=== PATIENT | male | born 1990 | race Caucasian/White ===

== ENCOUNTER 2018-01-05 18:09 | Emergency (ER) | payer OTHER ==
[2018-01-05 18:15] VITALS: BP 135/84
--- NOTE | 2018-01-05 18:46 | EDPHY ---
H & P Stated Complaint: Lower back pain x 2 days worse today, no trauma Time Seen by Provider: 01/05/18 18:31 HPI/ROS: CHIEF COMPLAINT: Acute low back pain x2 days HISTORY OF PRESENT ILLNESS: 27-year-old male generally healthy, drove himself to the ER complaining of atraumatic low back pain that started 2 days ago after heavy weight lifting the previous evening. He awoke the next morning with bilateral paraspinous low back pain which is reproducible with range of motion. No radiculopathy. No trauma or fall. No incontinence or retention. No saddle anesthesia. No fever or chills. No flu-like symptoms. No abdominal pain. No testicular pain. No urinary abnormality. REVIEW OF SYSTEMS: A ten point review of systems was performed and is negative with the exception of the items mentioned in the HPI PAST MEDICAL & SURGICAL HISTORY: No pertinent medical or surgical history SOCIAL HISTORY: No IV drug use. PHYSICAL EXAM (Prior to examination, patient consented to physical exam, hands were washed and my usual and customary physical exam procedures followed) 1) GENERAL: Well-developed, well-nourished, alert and oriented. Appears uncomfortable when he is asked to move.. 2) HEAD: Normocephalic, atraumatic 3) HEENT: Pupils equal, round, reactive to light bilaterally. Sclera anicteric. 4) NECK: Full range of motion, no meningeal signs. 5) LUNGS: Clear auscultation bilaterally, no wheezes, no rhonchi, no retractions. 6) HEART: Regular rate and rhythm, no murmur, no heave, no gallop. 7) ABDOMEN: No guarding, no rebound, no focal tenderness, negative McBurney's, negative Starr's, negative Rovsing's, negative peritoneal sign, 8) MUSCULOSKELETAL: Moving all extremities, no focal areas of tenderness, no obvious trauma. No peripheral edema or discoloration. 9) BACK: No CVA tenderness. tender to palpation paraspinous lumbar muscle. No lesions no vesicles no rash. No CVA tenderness, no midline vertebral tenderness, no fluctuance, no step-off, no obvious trauma, no visual or palpable abnormality. Positive straight leg lift test bilaterally 15 degrees. Reproducible pain with range of motion at the waist. Patella, Achilles reflexes intact to bilateral strength 5/5 10) SKIN: No rash, no petechiae. 11) NEURO: Awake, alert, and oriented to person, place and time. Answers questions appropriately. There were no obvious focal neurologic abnormalities. No cerebellar dysfunction. Upper and lower extremities bilaterally with strength 5 / 5, reflexes 2+.. DIFFERENTIAL DIAGNOSIS: In no particular order, including but not limited to, fracture, sprain/strain, cauda equina, spinal infectious etiology. MEDICAL DECISION MAKING Lower index of suspicion for cauda equina, epidural abscess, epidural hematoma, lumbar myositis, diskitis, as the patient is neurologically intact in the lower extremities, has patella and Achilles reflexes intact and equal bilaterally, has no neurologic deficits, no incontinence, no retention, no midline pain, no fluctuance, afebrile, no flulike symptoms. Pain may be secondary to muscular strain, may be secondary to discogenic etiology. At this point I do not identify definitive indication for emergent MRI, however patient may necessitate this on an outpatient basis. This time I think the patient can be managed on outpatient basis with Medrol Dosepak, Flexeril. No history of adverse reaction to steroids or history of psychiatric illness. Patient given acute back pain precautions. Patient verbalizes understanding of discharge instructions. I believe them be competent decision-makers. All questions and concerns have been addressed by me. Ample opportunity for questions have been provided . The patient understands that this diagnosis is provisional and can never be 100% accurate. Usual and customary warnings were given concerning the clinical impression and all the patient's questions were answered. The patient was instructed to return to the emergency department should her symptoms worsen or return, or develop any new symptoms, otherwise to followup as directed in discharge instructions. - Medical/Surgical History Hx Asthma: No Hx Chronic Respiratory Disease: No Hx Diabetes: No Hx Cardiac Disease: No Hx Renal Disease: No Hx Cirrhosis: No Hx Alcoholism: No Hx HIV/AIDS: No Hx Splenectomy or Spleen Trauma: No Other PMH: denies - Social History Smoking Status: Never smoked Constitutional: Initial Vital Signs Temperature (C) 36.7 C 01/05/18 18:12 Heart Rate 107 H 01/05/18 18:12 Respiratory Rate 16 01/05/18 18:12 Blood Pressure 135/84 H 01/05/18 18:12 O2 Sat (%) 97 01/05/18 18:12 O2 Delivery Mode Room Air Allergies/Adverse Reactions: No Known Allergies Allergy (Unverified 01/05/18 18:12) Home Medications: Medication Instructions Recorded Cyclobenzaprine [Flexeril 10 MG 10 mg PO TID #15 tab 01/05/18 (RX)] Lidocaine [Lidoderm] 1 each TP BID #30 adh..patch 01/05/18 methylPREDNISolone [Medrol Dose 4 mg PO DAILY #1 ea 01/05/18 Brandon] Medical Decision Making ED Course/Re-evaluation: Care of patient under supervision of secondary supervising physician Dr Sanford . Departure - Departure Disposition: Home, Routine, Self-Care Clinical Impression: Acute low back pain Qualifiers: Back pain laterality: bilateral Sciatica presence: without sciatica Qualified Code(s): M54.5 - Low back pain Condition: Good Instructions: Acute Low Back Pain (ED) Additional Instructions: Seek medical attention if you develop new or worsening pain, if you develop bladder or bowel dysfunction, numbness around your perineum, foot drop, or any other symptoms that concern you. Referrals: Jeremiah Edwards MD [Medical Doctor] - 5-7 days, call for appt. Stand Alone Forms: School Excuse Prescriptions: Cyclobenzaprine [Flexeril 10 MG (RX)] 10 mg PO TID #15 tab Lidocaine [Lidoderm] 1 each TP BID #30 adh..patch methylPREDNISolone [Medrol Dose Brandon] 4 mg PO DAILY #1 ea
== END 2018-01-05 18:56 | disposition home or self-care (01) ==
DX: M54.5 Low back pain (principal)